=== PATIENT | male | born 1950 | race Caucasian/White ===

== ENCOUNTER 2017-12-02 15:06 | Emergency (ER) | payer OTHER ==
[~2017-12-02] VITALS: Ht 165.1 cm; Wt 79.3 kg
[2017-12-02 15:37] VITALS: BP 176/89; PULSE 59; RESP 18; TEMP 98; O2SAT 98
[2017-12-02] MEDS ORDERED: REFRDRO EACH EYE (16:11)
[2017-12-02] MEDS ORDERED: ATOR40TA16 PO (16:11)
[2017-12-02] MEDS ORDERED: TRAZ50TA12 PO (16:11)
[2017-12-02] MEDS ORDERED: SUMA85TA PO (16:11)
[2017-12-02] MEDS ORDERED: LOSA50TA2 PO (16:11)
--- NOTE | 2017-12-02 17:19 | PD ---
HPI Chief Complaint: Musculoskeletal Complaint Time Seen by Provider: 16:09 Travel History International Travel<30 days: No Contact w/Intl Traveler<30days: No Traveled to known affect area: No History of Present Illness HPI 67-year-old male that presents to the ED for evaluation of right leg pain and swelling. Per patient she's had this since last week. Per patient initially he thought he might have twisted something on his leg. Per patient he checked a headache sheet and he felt a pop on the back of his calf. Per patient ever since his been having pain but not too bad. Per patient he came here from [place] on a long car ride and his noted that she's been having more swelling and discomfort. Per patient the pain wasn't initially too bad but now is becoming more severe especially in the morning. Mainly to the cough. No other injuries. He is also been noticing more swelling on his ankle. Pain per patient is currently less than 2, but when it gets bad he tends to be 7 out of 10. No other injuries reported. No fevers chills or sweats. No chest pain or shortness of breath. PFSH Past Medical History High Cholesterol: Yes Hypertension: Yes Migraines: Yes (visual aura) Past Surgical History Other Surgery: Yes (bilateral inguinal hernia repair) Social History Alcohol Use: Yes (occ) Tobacco Use: No Substance Use: No Allergies-Medications (Allergen,Severity, Reaction): Coded Allergies: No Known Allergies (Unverified , 12/02/17) Reported Meds & Prescriptions Reported Meds & Active Scripts Active Diclofenac Sodium DR (Diclofenac Sodium) 75 Mg Tabdr 75 Mg PO BID PRN Reported Refresh Opth Drops (Polyvinyl Alcohol-Povidone Opth Drops) 1.4-0.6% Drops 1-2 Drop EACH EYE PRN PRN Treximet (Sumatriptan-Naproxen) 85-500 Mg Tab 1 Tab PO ONCE PRN May take a second dose after 2 hours if needed. Maximum 2 tabs in 24 hour period. Trazodone (Trazodone HCl) 50 Mg Tab 50 Mg PO HS Atorvastatin (Atorvastatin Calcium) 40 Mg Tab 40 Mg PO HS Losartan-Hydrochlorothiazide 50-12.5 Mg Tab 1 Tab PO DAILY Review of Systems Except as stated in HPI: all other systems reviewed are Neg Physical Exam Narrative GENERAL: SKIN: Warm and dry. HEAD: Atraumatic. Normocephalic. EYES: Pupils equal and round. No scleral icterus. No injection or drainage. ENT: No nasal bleeding or discharge. Mucous membranes pink and moist. NECK: Trachea midline. No JVD. CARDIOVASCULAR: Regular rate and rhythm. RESPIRATORY: No accessory muscle use. Clear to auscultation. Breath sounds equal bilaterally. GASTROINTESTINAL: Abdomen soft, non-tender, nondistended. Hepatic and splenic margins not palpable. MUSCULOSKELETAL: Extremities without clubbing, cyanosis, or edema. No obvious deformities. Tenderness noted. Patient does have 1+ pitting edema on the right lower extremity compared to the left. Full range of motion of the upper and lower extremities bilaterally. Pupils pulses bilaterally. NEUROLOGICAL: Awake and alert. No obvious cranial nerve deficits. Motor grossly within normal limits. Five out of 5 muscle strength in the arms and legs. Normal speech. PSYCHIATRIC: Appropriate mood and affect; insight and judgment normal. Data Data Last Documented VS Vital Signs Date Time Temp Pulse Resp B/P (MAP) Pulse Ox O2 Delivery O2 Flow Rate FiO2 12/02/17 15:37 98.0 59 18 176/89 (118) 98 Orders Orders Us Leg Venous Doppler (12/02/17 ) Ed Discharge Order (12/02/17 18:33) [facility] Medical Decision Making Medical Screen Exam Complete: Yes Emergency Medical Condition: Yes Medical Record Reviewed: Yes Interpretation(s) US negative for DVT, did showed kaiser cyst Differential Diagnosis DVT versus muscle strain versus muscle spasm Narrative Course 67-year-old male that presents to the ED for evaluation of right leg swelling and pain. Patient was properly examined and was found to have signs and symptoms of unclear etiology but definite concerning for possible DVT versus muscle strain. Patient does have some swelling compared to the left leg and does have risk factors for DVT including recent travel. Recommend ultrasound. Ultrasound showed no DVT but did show Kaiser cyst. Questionable with this is related to the discomfort that the patient is having. Also also muscle tear in the differential. At this time I recommend warm compresses. Given prescription for anti-inflammatories. Compression stockings as needed. Close follow with PCP. See ED worsening symptoms. Diagnosis Primary Impression: Kaiser's cyst of knee Qualified Codes: M71.21 - Synovial cyst of popliteal space [Kaiser], right knee Patient Instructions: General Instructions Additional Instructions: Take medication as prescribed. Follow with PCP. You have a Kaiser cyst 6.3 x 2.2 cm that was found on the ultrasound. This is under popliteal area of your knee. Med/Other Pt SpecificInfo: Prescription(s) given Scripts Diclofenac Sodium DR (Diclofenac Sodium DR) 75 Mg Tabdr 75 MG PO BID Y for PAIN SCALE 1 TO 10, #20 TAB 0 Refills Prov: Yue Steiner MD 12/02/17 Disposition: 01 DISCHARGE HOME Condition: Stable Eamon Lowery Dec 02, 2017 17:19
--- NOTE | 2017-12-02 18:29 | RADRPT ---
EXAM DATE/TIME: 12/02/2017 17:29 [facility] COMPARISON: No previous studies available for comparison. INDICATIONS : Right leg swelling. MEDICAL HISTORY : Hypercholesterolemia. Hypertension. Migraine. Alcohol use. SURGICAL HISTORY : Bilateral inguinal hernia repair. ENCOUNTER: Initial ACUITY: 1 week PAIN SCORE: 3/10 LOCATION: Right leg. TECHNIQUE: Venous ultrasound of the leg was performed from the inguinal ligament to the proximal calf. Real-rai e, color Doppler and spectral tracing, compression and augmentation techniques were used. FINDINGS: There is normal compressibility of the deep venous system from the inguinal region to the proximal ca lf. No echogenic clot is seen in the lumen of the common femoral, femoral, popliteal, and posterior tibial veins. There is a normal response of the venous system to proximal and distal augmentation an d respiration. There is 6.3 x 2.2 cm collection with heterogeneous echogenicity which may reflect a c omplicated Kaiser's cyst. CONCLUSION: 1. No evidence of deep venous thrombosis. 2. Probable Kaiser's cyst as above Contreras Stone MD on December 02, 2017 at 18:14 Board Certified Radiologist. This report was verified electronically.
[2017-12-02] MEDS ORDERED: DICL75TA PO (18:32)
== END 2017-12-02 18:46 | disposition home or self-care (01) ==
LOC: PHEFT 15:06
DX: M71.21 Synovial cyst of popliteal space [Baker], right knee (principal); I10 Essential (primary) hypertension; E78.00 Pure hypercholesterolemia, unspecified
CPT/HCPCS: 93971; 99284